=== PATIENT | female | born 1990 | race Caucasian/White ===

== ENCOUNTER 2016-08-01 13:46 | Emergency (ER) | payer BC ==
[2016-08-01 14:08] VITALS: BP 146/90
--- NOTE | 2016-08-01 14:17 | EDM.PDOC ---
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 Patient states she is approximately 11 weeks . She has one viable in the past. She denies any UTI symptoms. No recent vaginal discharge or odor. Patient is still sexually active. No fevers or chills. Denies N/V/D. Onset: Today Onset Date: 08/01/16 Onset Time: 12:00 Duration: Waxing/Waning Location: Reports: Abdomen Quality: Reports: Other (cramping) Severity: Mild - Related Data Allergies Allergy/AdvReac Type Severity Reaction Status Date / Time No Known Allergies Allergy Verified 08/01/16 14:09 Home Meds: Home Meds . [No Known Home Meds] 08/01/16 [History] Past Medical History FOOD SERVICE SUPERVISOR History: Reports: Social & Family History - Tobacco Use Smoking Status *Q: Never Smoker ED ROS GENERAL - Review of Systems Review Of Systems: See Below Constitutional: Denies: Fever, Chills, Weakness Respiratory: Denies: Shortness of Breath, Cough Cardiovascular: Denies: Chest Pain, Palpitations GI/Abdominal: Reports: Abdominal Pain. Denies: Diarrhea, Nausea, Vomiting : Reports: Frequency, Pain Skin: Reports: No Symptoms Neurological: Reports: Dizziness. Denies: Headache, Numbness, Paresthesia, Tingling ED EXAM - Physical Exam Exam: See Below Exam Limited By: No Limitations General Appearance: Alert, No Apparent Distress Respiratory/Chest: No Respiratory Distress, Lungs Clear, Normal Breath Sounds Cardiovascular: Regular Rate, Rhythm GI/Abdominal: Normal Bowel Sounds, Soft (Female) Exam: Other (Deferred per patient request) Neurological: Alert, Oriented Skin Exam: Warm, Dry, Intact, Normal Color, No Rash Course - Vital Signs Last Recorded V/S: Last Vital Signs Temp 37.1 C 08/01/16 13:48 Pulse 88 08/01/16 13:48 Resp 16 08/01/16 13:48 BP 146/90 H 08/01/16 13:48 Pulse Ox 100 08/01/16 13:48 - Orders/Labs/Meds Orders: Active Orders 24 hr Category Date Time Status QUANTITATIVE BHCG [REF] Stat Lab 08/01/16 14:25 Received QUANTITATIVE BHCG [REF] Stat Lab 08/03/16 08:00 Ordered Labs: Laboratory Tests 08/01/16 08/01/16 08/01/16 Range/Units 14:16 14:16 14:25 WBC 9.0 (4.0-10.0) x10^3/uL RBC 4.27 (4.00-5.50) x10^6/uL Hgb 12.5 (12.0-16.0) g/dL Hct 36.4 (33.0-47.0) % MCV 85.2 (78.0-93.0) fL MCH 29.3 (26.0-32.0) pg MCHC 34.3 (32.0-36.0) g/dL RDW Coeff of Valente 12.7 (10.0-15.0) % Plt Count 221 (130-400) x10^3/uL Neut % (Auto) 74.7 (50.0-80.0) % Lymph % (Auto) 16.9 L (25.0-50.0) % Rankin % (Auto) 6.9 (2.0-11.0) % Eos % (Auto) 1.1 (0.0-4.0) % Baso % (Auto) 0.4 (0.2-1.2) % Sodium (136-145) mmol/L Potassium (3.5-5.1) mmol/L Chloride (98-107) mmol/L Carbon Dioxide (21-32) mmol/L BUN (7-18) mg/dL Creatinine (0.55-1.02) mg/dL Est Cr Clr Drug Dosing Estimated GFR (MDRD) Glucose (74-106) mg/dL Calcium (8.5-10.1) mg/dL Urine Color Light yellow (YELLOW) Urine Appearance Clear (CLEAR) Urine pH 5.5 (5.0-8.0) Ur Specific Fletcher <=1.005 Urine Protein Negative (NEGATIVE) mg/dL Urine Glucose (UA) Negative (NEGATIVE) mg/dL Urine Ketones Negative (NEGATIVE) mg/dL Urine Occult Blood Negative (NEGATIVE) Urine Nitrite Negative (NEGATIVE) Urine Bilirubin Negative (NEGATIVE) Urine Urobilinogen 0.2 (0.2) EU/dL Ur Leukocyte Esterase Negative (NEGATIVE) Urine RBC 0-5 (NOT SEEN) /HPF Urine WBC 0-5 (NOT SEEN) /HPF Ur Squamous Epith Cells Few H (NEGATIVE) /HPF Urine Bacteria Not seen (NEGATIVE) /HPF Urine Mucus Not seen (NEGATIVE) /LPF Urine HCG, Qual Positive H (NEGATIVE) 08/01/16 Range/Units 14:25 WBC (4.0-10.0) x10^3/uL RBC (4.00-5.50) x10^6/uL Hgb (12.0-16.0) g/dL Hct (33.0-47.0) % MCV (78.0-93.0) fL MCH (26.0-32.0) pg MCHC (32.0-36.0) g/dL RDW Coeff of Valente (10.0-15.0) % Plt Count (130-400) x10^3/uL Neut % (Auto) (50.0-80.0) % Lymph % (Auto) (25.0-50.0) % Rankin % (Auto) (2.0-11.0) % Eos % (Auto) (0.0-4.0) % Baso % (Auto) (0.2-1.2) % Sodium 138 (136-145) mmol/L Potassium 3.5 (3.5-5.1) mmol/L Chloride 102 (98-107) mmol/L Carbon Dioxide 25 (21-32) mmol/L BUN 9 (7-18) mg/dL Creatinine 0.6 (0.55-1.02) mg/dL Est Cr Clr Drug Dosing TNP Estimated GFR (MDRD) > 60 Glucose 88 (74-106) mg/dL Calcium 8.9 (8.5-10.1) mg/dL Urine Color (YELLOW) Urine Appearance (CLEAR) Urine pH (5.0-8.0) Ur Specific Fletcher Urine Protein (NEGATIVE) mg/dL Urine Glucose (UA) (NEGATIVE) mg/dL Urine Ketones (NEGATIVE) mg/dL Urine Occult Blood (NEGATIVE) Urine Nitrite (NEGATIVE) Urine Bilirubin (NEGATIVE) Urine Urobilinogen (0.2) EU/dL Ur Leukocyte Esterase (NEGATIVE) Urine RBC (NOT SEEN) /HPF Urine WBC (NOT SEEN) /HPF Ur Squamous Epith Cells (NEGATIVE) /HPF Urine Bacteria (NEGATIVE) /HPF Urine Mucus (NEGATIVE) /LPF Urine HCG, Qual (NEGATIVE) Departure - Departure Time of Disposition: 15:03 Disposition: Home, Self-Care 01 Condition: Good Clinical Impression: Cramping affecting , antepartum - Discharge Information Instructions: Abdominal Pain During , Test Information Referrals: PCP,None [Primary Care Provider] - Forms: ED Department Discharge Additional Instructions: 1. Stay well hydrated and rest 2. Return in 2 days to have your blood test repeated 3. Will mail letter when test results are available 4. Keep appointment with your OB on 08/11/2016 5. Call with any questions ED Communication - ED Communication Date/Time Date: 08/01/16 Time Called: 14:52 - Discussed Case With (1) Discussed Case With (1): Outpatient Provider Person/s Notified (1): Erik Mccartney - Conversation Summary Summary Comment: Case discussed with Dr. Mccartney, FOOD SERVICE SUPERVISOR [place]. Recommended serum beta HCG today and repeat in 48 hours. Would like PCP to do an US at next appointment. Patietn await and agrees with plan. - Problem List Review Problem List Initiated/Reviewed/Updated: Yes - My Orders Last 24 Hours: My Active Orders 08/01/16 14:25 QUANTITATIVE BHCG [REF] Stat 08/03/16 08:00 QUANTITATIVE BHCG [REF] Stat - Assessment/Plan Last 24 Hours: My Active Orders 08/01/16 14:25 QUANTITATIVE BHCG [REF] Stat 08/03/16 08:00 QUANTITATIVE BHCG [REF] Stat
[2016-08-01 14:52] LABS: CHLORIDE,CL 102 mmol/L (98-107); SODIUM,NA 138 mmol/L (136-145)
== END 2016-08-01 15:40 | disposition home or self-care (01) ==
LOC: VM.ED 13:46
DX: O99.89 Other specified diseases and conditions complicating pregnancy, childbirth and the puerperium (principal); R10.9 Unspecified abdominal pain; Z3A.11 11 weeks gestation of pregnancy
CPT/HCPCS: 36415; 80048; 81001; 81025; 84702; 85025; 99284